=== PATIENT | male | born 1985 ===

== ENCOUNTER → 2017-02-13 | Outpatient (CLI) | payer BC ==
[~2017-02-13] MED LIST: B-COTAB18 PO; CHOL100010 PO
== END | disposition home or self-care (01) ==
LOC: C.RDSM 10:11
PROVIDERS: ATTEND Physical Medicine & Rehabilitation
DX: M79.671 Pain in right foot (principal)

== ENCOUNTER → 2017-03-13 | Outpatient (CLI) | payer BC | END | disposition home or self-care (01) | LOC: C.RDSM 08:23 | PROVIDERS: ATTEND Physical Medicine & Rehabilitation | DX: S92.354A Nondisplaced fracture of fifth metatarsal bone, right foot, initial encounter for closed fracture (principal); X58.XXXA Exposure to other specified factors, initial encounter ==

== ENCOUNTER → 2017-04-08 | Day surgery (SDC) | payer BC ==
[2017-03-26 08:50] VITALS: Ht 177.8 cm; Wt 80.0 kg
[~2017-04-08] VITALS: Ht 177.8 cm; Wt 80.0 kg
[~2017-04-08] MED LIST changes: +ATROPINE SULFATE 0.1 MG/ML 5ML SYR IV PRN; +BUPIVACAINE 0.5 % 5 MG/1 ML MPF 30ML VIAL ONE; +CEFAZOLIN 2000 MG/60 ML D5W IV SCH; +DEXAMETHASONE SOD INJ 4 MG/ML VIAL ONE; +EpHEDrine SULFATE INJ 50 MG/ML AMP IV PRN; +FENTANYL CITRATE INJ 50 MCG/1 ML 2 ML VIAL IV PRN; +FENTANYL CITRATE INJ 50 MCG/1 ML 2 ML VIAL ONE; +HYDROmorphone INJ 1 MG/ML SYR IV PRN; +KETOROLAC TROMETHAMINE 30 MG/ML VIAL ONE; +LACTATED RINGER'S 1000ML 1,000 ML IV SCH; +LIDOCAINE HCL 2% 2 ML VIAL (20MG/ML) ONE; +MIDAZOLAM HCL 1 MG/ML 2ML VIAL ONE; +ONDANSETRON INJ 2 MG/ML 2 ML VIAL IV PRN; +ONDANSETRON INJ 2 MG/ML 2 ML VIAL ONE; +PROPOFOL IV EMULSION 10 MG/ML 20 ML VIAL IV ONE; +ROPIVACAINE 0.5% 5 MG/ML 30 ML VIAL ONE; +SODIUM CHLORIDE 0.9% 1000ML 1,000 ML IV SCH
--- NOTE | 2017-04-08 06:34 | History & Physical Bridge Note ---
H&P Re-Evaluation Bridge Note: I have examined the patient, reviewed the History & Physical and in the interval since the performance of the History & Physical I have noted the following changes of clinical significance: No changes noted
--- NOTE | 2017-04-08 06:35 | Discharge Instructions ---
Discharge Instructions Date of Service April 08, 2017. Visit Reason for Visit: Right Foot 5TH Metatarsal Apophysis Discharge Discharge Diagnosis / Problem: same Discharge Goals Goal(s): Decrease discomfort, Improve function Medications Stopped Medications Name(s): na Restart Stopped Medication(s): use all scripts as directed Activity Recommendations Activity Limitations: as noted below Lifting Limitations: until after follow-up appointment Exercise/Sports Limitations: until after follow-up appointment May Resume Sexual Activity: when tolerated Shower/Bathe: keep incision dry Driving or Machine Use: Weightbearing Status: Right weightbearing (as tolerated) Anesthesia . Post Anesthesia Instructions: If you have had General Anesthesia or IV Sedation: * Do not drive today. * Resume driving when surgeon permits. * Do not make important decisions or sign legal documents today. * Call surgeon for: 1. Temperature elevations greater than 101 degrees F. 2. Uncontrollable pain. 3. Excessive bleeding. 4. Persistent nausea and vomiting. 5. Medication intolerance (nausea, vomiting or rash). * For nausea and vomiting use only clear liquids such as: tea, soda, bouillon until nausea subsides, then gradually increase diet as tolerated. * If you have any concerns or questions, call your surgeon's office. If physician is unavailable and it is an emergency, call 911 or go to the nearest emergency room. . Diet Recommendations Recommended Home Diet: resume previous diet Procedures Procedures Performed: excision of apophysis Pending Studies Studies pending at discharge: no Medical Emergencies . Who to Call and When: Medical Emergencies: If at any time you feel your situation is an emergency, please call 911 immediately. . Non-Emergent Contact Non-Emergency issues call your: Specialist Call Non-Emergent contact if: temperature is above 101.5 . . "Provider Documentation" section prepared by Yasir Vazquez. .
--- NOTE | 2017-04-08 07:39 | [facility] Post Operative Brief Note ---
Immediate Operative Summary Operative Date April 08, 2017. Pre-Operative Diagnosis Right Foot 5th Metatarsal Apophysis Post-Operative Diagnosis Same Procedure(s) Performed Right Foot 5th Metatarsal Apophyseal Non Union Excision Surgeon Dr. Vazquez Senior Editor Surgeon(s) Joann Castañeda, Fellow; Lucio Atkins PA-C Estimated Blood Loss Trace Findings non union Fluids (cc crystalloids) 900cc Specimens None Drains none Anesthesia lma/local Complication(s) None Disposition Recovery Room / PACU
--- NOTE | 2017-04-08 07:54 | OPERATIVE REPORT ---
DATE OF OPERATION: 04/08/2017 SURGEON: Dr. Vazquez. SUPERVISOR INSPECTION AND TESTING: Dr. Grullon. SECOND SUPERVISOR INSPECTION AND TESTING: Anmol Atkins PA-C. PREOPERATIVE DIAGNOSIS: Nonunion apophysis right fifth metatarsal, left foot. POSTOPERATIVE DIAGNOSIS: Same. OPERATION PERFORMED: Excision apophysis with repair of peroneal brevis tendon. PERIOPERATIVE SITUATION: Medically cleared male with intractable foot pain. Physical exam and x-ray reveals significant nonunion of the peroneal brevis attachment to apophysis of the fifth metatarsal. At this point in time will proceed with surgical excision and repair of the tendon to bone. Again, operation is excision apophysis nonunion right fifth metatarsal primary repair of peroneus brevis tendon. PROCEDURE: The patient appropriately identified, site verified, consent verified, 2 grams of Ancef confirmed as being given. The right lower extremity was prepped and draped in usual routine fashion. Tourniquet inflated to 275 mmHg after exsanguination of limb with a rubber Esmarch bandage for a total of 23 minutes. A longitudinal incision was made based over the area of interest. Blunt dissection carried down to the subcutaneous tissue, nerves protected. The tendon was identified. This was then split longitudinally and the nonunion elliptically subperiosteally dissected free and removed. The area was then irrigated and a 1.4 JuggerKnot anchor placed and the tendon repaired back down to bone. Good repair was obtained. The area was then irrigated one final time and then the horizontal mattress suture used to close the skin. Dressing was then applied and a short low tide Cam walker applied. The patient was then transferred to recovery room in satisfactory condition having tolerated the procedure well. Overall blood loss was trace. 900 mL of fluid. DVT prophylaxis with aspirin. I attest to the content of the Intraoperative Record and any orders documented therein. Any exceptio ns are noted below.
[2017-04-08 08:18] VITALS: TEMP 36.5
[2017-04-08 08:42] VITALS: BP 109/67; PULSE 50; O2SAT 100
--- NOTE | 2017-04-08 08:50 | Anesthesia Progress Nt - [facility] ---
Anesthesia Post Op Note Date & Time April 08, 2017 at 08:50 Vital Signs Pain Intensity: 3 Vital Signs Past 12 Hours Date Time Temp Pulse Resp B/P Pulse Ox O2 Delivery O2 Flow Rate FiO2 04/08/17 08:42 50 16 109/67 100 04/08/17 08:18 36.5 54 16 113/68 99 Room Air 04/08/17 08:06 100/70 04/08/17 08:05 36.7 54 14 100/70 99 Room Air 04/08/17 08:05 55 16 99 04/08/17 08:05 54 16 04/08/17 08:01 101/76 04/08/17 08:00 61 15 04/08/17 08:00 61 15 99 04/08/17 07:56 110/67 04/08/17 07:55 58 18 04/08/17 07:55 57 18 100 04/08/17 07:51 113/69 04/08/17 07:50 56 12 04/08/17 07:50 56 12 100 04/08/17 07:46 105/70 04/08/17 07:45 56 14 04/08/17 07:45 56 14 100 04/08/17 07:41 36.9 52 16 108/63 99 Mask 6 04/08/17 07:41 108/63 04/08/17 07:40 51 99 04/08/17 07:40 51 04/08/17 06:32 36.8 60 16 117/72 99 Room Air Notes Mental Status: alert / awake / arousable, participated in evaluation Pt Amnestic to Procedure: Yes Nausea / Vomiting: adequately controlled Pain: adequately controlled Airway Patency, RR, SpO2: stable & adequate BP & HR: stable & adequate Hydration State: stable & adequate Anesthetic Complications: no major complications apparent
--- NOTE | 2017-04-08 20:32 | OPERATIVE REPORT ---
DATE OF OPERATION: 04/08/2017 PREOPERATIVE DIAGNOSIS: Right fifth metatarsal nonunion apophysitis. POSTOPERATIVE DIAGNOSIS: Right foot same. PROCEDURE: Right foot fifth metatarsal excision of apophysis with repair of peroneal brevis tendon. SURGEON: Dr. Vazquez. IC DESIGNER STANDARD CELLS: Dr. Grullon. SECOND SUPERVISOR GROUNDS: Anmol Atkins PA-C. HISTORY OF PRESENT ILLNESS: This 31-year-old white male presented to the office with complaints of right foot pain. It had been longstanding. It was worse with wearing shoes or prolonged weightbearing. He had tried conservative care measures without success. The patient elected to proceed with surgical intervention after being educated about potential risks and outcomes. DESCRIPTION OF PROCEDURE: The patient was taken to the operating room where he was given general anesthetic. He was prepped and draped in the usual sterile fashion. Please see Dr. Vazquez's operative report for specifics of the procedure. I was present for the entire case from initial patient positioning through final wound closure. Assistance was provided in tissue retraction, hemostasis, implant placement, and final wound closure. The patient was taken to the recovery room in satisfactory condition. I attest to the content of the Intraoperative Record and any orders documented therein. Any exceptio ns are noted below.
== END | disposition home or self-care (01) ==
LOC: X.SURG 06:13
PROVIDERS: ATTEND Physical Medicine & Rehabilitation Sports Medicine
DX: F17.200 Nicotine dependence, unspecified, uncomplicated (principal); S92.354K Nondisplaced fracture of fifth metatarsal bone, right foot, subsequent encounter for fracture with nonunion; X58.XXXS Exposure to other specified factors, sequela

== ENCOUNTER → 2017-05-19 | Outpatient (CLI) | payer BC ==
[~2017-05-19] MED LIST changes: -ATROPINE SULFATE 0.1 MG/ML 5ML SYR IV PRN; -BUPIVACAINE 0.5 % 5 MG/1 ML MPF 30ML VIAL ONE; -CEFAZOLIN 2000 MG/60 ML D5W IV SCH; -DEXAMETHASONE SOD INJ 4 MG/ML VIAL ONE; -EpHEDrine SULFATE INJ 50 MG/ML AMP IV PRN; -FENTANYL CITRATE INJ 50 MCG/1 ML 2 ML VIAL IV PRN; -FENTANYL CITRATE INJ 50 MCG/1 ML 2 ML VIAL ONE; -HYDROmorphone INJ 1 MG/ML SYR IV PRN; -KETOROLAC TROMETHAMINE 30 MG/ML VIAL ONE; -LACTATED RINGER'S 1000ML 1,000 ML IV SCH; -LIDOCAINE HCL 2% 2 ML VIAL (20MG/ML) ONE; -MIDAZOLAM HCL 1 MG/ML 2ML VIAL ONE; -ONDANSETRON INJ 2 MG/ML 2 ML VIAL IV PRN; -ONDANSETRON INJ 2 MG/ML 2 ML VIAL ONE; -PROPOFOL IV EMULSION 10 MG/ML 20 ML VIAL IV ONE; -ROPIVACAINE 0.5% 5 MG/ML 30 ML VIAL ONE; -SODIUM CHLORIDE 0.9% 1000ML 1,000 ML IV SCH
== END | disposition home or self-care (01) ==
LOC: C.RDSM 14:48
PROVIDERS: ATTEND Physical Medicine & Rehabilitation Sports Medicine
DX: S92.351A Displaced fracture of fifth metatarsal bone, right foot, initial encounter for closed fracture (principal); X58.XXXA Exposure to other specified factors, initial encounter